=== PATIENT | male | born 1965 | race African-American/Black ===

== ENCOUNTER 2024-03-14 11:58 | Inpatient (IN) | payer OTHER ==
[2024-03-14 13:47] VITALS: BMI 20.5
[2024-03-14] MEDS ORDERED: BENZONATATE 200 MG CAPSULE PO PRN (15:41)
[2024-03-14] MEDS ORDERED: ONDANSETRON *ODT* 4 MG TABLET SL PRN (15:41)
[2024-03-14] MEDS ORDERED: LOPERAMIDE HCL 2 MG CAPSULE PO PRN (15:41)
[2024-03-14] MEDS ORDERED: POLYETHYLENE GLYCOL (HEALTHYLAX) 3350 17 GM PACKET PO PRN (15:41)
[2024-03-14] MEDS ORDERED: MAGNESIUM HYDROX 2400MG/30ML ORAL SUSPENSION 30 ML CUP PO PRN (15:41)
[2024-03-14] MEDS ORDERED: BENZOCAINE/MENTHOL (CHLORASEPTIC ) LOZENGE MM PRN (15:41)
[2024-03-14] MEDS ORDERED: MAG HYDROX/AL HYDROX/SIMETH 30 ML UNIT-DOSE CUP PO PRN (15:41)
[2024-03-14] MEDS ORDERED: DICYCLOMINE HCL 10 MG CAPSULE PO PRN (15:41)
[2024-03-14] MEDS ORDERED: BISMUTH SUBSALICYLATE 524 MG/30 ML PO PRN (15:41)
[2024-03-14] MEDS ORDERED: IBUPROFEN 400 MG TABLET (FP) PO PRN (15:41)
[2024-03-14] MEDS ORDERED: guaiFENesin 600 MG TABLET.ER (FP) PO PRN (15:41)
[2024-03-14] MEDS ORDERED: ACETAMINOPHEN 325 MG TABLET (FP) PO PRN (15:41)
[2024-03-14] MEDS: NICOTINE 14 MG/24 HOURS TOPICAL PATCH TD SCH (17:11)
[2024-03-14] MEDS: PRENATAL VITAMINS W/ FOLIC ACID TABLET (FP) PO SCH (17:11)
[2024-03-14] MEDS: MELATONIN 5 MG TABLETS PO SCH (22:55)
[2024-03-14] MEDS: THIAMINE 100 MG TABLET PO SCH (22:55)
[2024-03-15] MEDS ORDERED: cloNIDine HCL 0.1 MG TABLET PO PRN (09:38)
[2024-03-15] MEDS ORDERED: methaDONE HCL 10 MG TABLET PO ONE (09:40)
[2024-03-15] MEDS: cloNIDine HCL 0.1 MG TABLET PO SCH (10:52)
[2024-03-15] MEDS: methaDONE HCL 10 MG TABLET PO ONE (11:50)
[2024-03-15 13:33] LABS: HEMATOCRIT 38.2 % (35.4-49); HEMOGLOBIN 12.7 GM/dL (11.7-16.9); MCHC 33.3 g/dl (32.0-35.9); MEAN CELL VOLUME 93.3 fl (80-96); MEAN PLT VOLUME 7.5 fl (7.5-11.1); PLATELET COUNT 313 10^3/uL (134-434); RDW 13.1 % (11.9-15.9); WHITE BLOOD COUNT 5.3 K/mm3 (4.0-10.0)
[2024-03-15 14:02] LABS: CHLORIDE 100 mmol/L (98-107); POTASSIUM 4.2 mmol/L (3.5-5.1); SODIUM 135 mmol/L (136-145)
[2024-03-15 14:07] LABS: CALCIUM 9.3 mg/dL (8.5-10.1)
[2024-03-15 14:08] LABS: ALBUMIN 3.2 g/dl (3.4-5.0); ANION GAP 9 mmol/L (4-13); BLOOD UREA NITROGEN 18.6 mg/dL (7-18); CO2 26 mmol/L (21-32)
[2024-03-15 14:09] LABS: GLUCOSE,RANDOM 457 mg/dL (74-106)
[2024-03-15 14:10] LABS: SGOT/AST 12 U/L (15-37); SGPT/ALT 23 U/L (13-61)
[2024-03-15 14:12] LABS: BILIRUBIN,TOTAL 0.4 mg/dL (0.2-1); TOT PROT 6.6 g/dl (6.4-8.2)
[2024-03-15 14:13] LABS: ALK PHOS 114 U/L (45-117)
[2024-03-15] MEDS: INSULIN ASPART SLIDING SCALE (NOVOLOG) 1 VIAL SQ SCH (18:06)
[2024-03-15] MEDS: hydrOXYzine PAMOATE 25 MG CAPSULE (FP) PO PRN (22:52)
[2024-03-15] MEDS: METHOCARBAMOL 500 MG TABLET PO PRN (22:52)
[2024-03-16] MEDS: methaDONE HCL 10 MG TABLET PO ONE (09:58)
[2024-03-16] MEDS: metFORMIN HCL 500 MG TABLET (FP) PO SCH (17:25)
[2024-03-17] MEDS ORDERED: cloNIDine HCL 0.1 MG TABLET PO PRN
[2024-03-17] MEDS ORDERED: methaDONE HCL 40 MG DISPERSABLE TABLET PO ONE (10:00)
[2024-03-17] MEDS: INSULIN ASPART SLIDING SCALE (NOVOLOG) 1 VIAL SQ SCH (23:05)
[2024-03-17] MEDS: IBUPROFEN 600 MG TABLET (FP) PO PRN (23:44)
[2024-03-18] MEDS ORDERED: INSULIN ASPART SLIDING SCALE (NOVOLOG) 1 VIAL SQ ONE (05:32)
[2024-03-18] MEDS ORDERED: INSULIN ASPART SLIDING SCALE (NOVOLOG) 1 VIAL SQ SCH (07:00)
[2024-03-18 08:34] LABS: POTASSIUM 3.7 mmol/L (3.5-5.1)
[2024-03-18 08:37] LABS: BASO % 0.4 % (0-2.0); EOS % 4.5 % (0-4.5); HEMATOCRIT 34.7 % (35.4-49); HEMOGLOBIN 11.6 GM/dL (11.7-16.9); LYMPH % 37.9 % (8-40); MCH 31.3 pg (25.7-33.7); MCHC 33.5 g/dl (32.0-35.9); MEAN CELL VOLUME 93.6 fl (80-96); MEAN PLT VOLUME 7.5 fl (7.5-11.1); NEUT % 48.2 % (42.8-82.8); PLATELET COUNT 276 10^3/uL (134-434); RBC 3.71 M/mm3 (4.00-5.60); RDW 13.1 % (11.9-15.9); WHITE BLOOD COUNT 6.4 K/mm3 (4.0-10.0)
[2024-03-18 08:41] LABS: CALCIUM 9.2 mg/dL (8.5-10.1)
[2024-03-18 08:42] LABS: ALBUMIN 3.2 g/dl (3.4-5.0); BLOOD UREA NITROGEN 22.2 mg/dL (7-18)
[2024-03-18 08:45] LABS: CREATININE 1.1 mg/dL (0.55-1.3)
[2024-03-18 08:46] LABS: BILIRUBIN,TOTAL 0.2 mg/dL (0.2-1); TOT PROT 6.7 g/dl (6.4-8.2)
[2024-03-18] MEDS ORDERED: methaDONE HCL 40 MG DISPERSABLE TABLET PO ONE (10:00)
[2024-03-19] MEDS: methaDONE HCL 40 MG DISPERSABLE TABLET PO ONE (10:10)
[2024-03-20] MEDS: methaDONE HCL 40 MG DISPERSABLE TABLET PO ONE (09:33)
[2024-03-20] MEDS: NALOXONE (NYS OPIOID OVERDOSE PROGRAM) 4 MG/0.1 ML SPRAY NS SCH (17:03)
[2024-03-21 09:29] VITALS: BP 133/60; PULSE 73; RESP 16; TEMP 97.5
[2024-03-21] MEDS: NALOXONE (NARCAN) HCL 4 MG/0.1 ML SPRAY NS PRN (10:06)
== END 2024-03-21 11:07 | disposition home or self-care (01) | DRG 773 ==
LOC: YASAS 11:58 → Y3N 15:36
PROVIDERS: ADMIT Allergy & Immunology; ATTEND Surgery
PROC: HZ2ZZZZ Detoxification Services for Substance Abuse Treatment (ICD-10-PCS; principal; 2024-03-14)
DX: F11.23 Opioid dependence with withdrawal (principal); F14.20 Cocaine dependence, uncomplicated; F17.210 Nicotine dependence, cigarettes, uncomplicated; E11.65 Type 2 diabetes mellitus with hyperglycemia; Z79.84 Long term (current) use of oral hypoglycemic drugs
CPT/HCPCS: 36415; 80053; 80307; 82962; 85025; 85027; 86780; 93005; 93010